=== PATIENT | female | born 1970 | race African-American/Black ===

== ENCOUNTER 2020-10-28 21:00 | Emergency (ER) | payer MEDICARE, MEDICAID ==
[~2020-10-28] VITALS: Ht 162.6 cm; Wt 54.0 kg
[2020-10-28] MEDS ORDERED: IV NORMAL SALINE 1000ML BAG 1,000 ML IV SCH ×2 (21:15→22:15)
[2020-10-28] MEDS ORDERED: IV RINGERS,LACTATED 1000ML 1,000 ML IV SCH (21:15)
--- NOTE | 2020-10-28 21:26 | PHYS DOC ---
General Adult EDM: Chief Complaint: NEURO SYMPTOMS/DEFICITS HPI: HPI: Patient is a 50 year old female past medical history of hypertension diabetes end-stage renal disease (dialysis M/W/F) presents for evaluation due to altered mental status. Prior to arrival patient was at dialysis and suddenly had altered mental status and would not follow commands. EMS was called and patient was transported to [facility] as a code stroke. On arrival patient Alert but confused--- she had no focal deficits on exam. She has no complaints. Patients blood pressure noted to be greater then 200 systolic. Patients heart rate > 100. Daughter states patient did not complete dialysis on Wednesday--- During dialysis patient complained of chest pain and then was transported to [facility]. Daughter is unsure if patient completed dialysis today. Review of Systems: Review of Systems: limited due to altered mental status Heart Score: C/O Chest Pain: N/A Risk Factors: Risk Factors: DM, Current or recent (<one month) smoker, HTN, HLP, family history of CAD, obesity. Risk Scores: Score 0 - 3: 2.5% MACE over next 6 weeks - Discharge Home Score 4 - 6: 20.3% MACE over next 6 weeks - Admit for Clinical Observation Score 7 - 10: 72.7% MACE over next 6 weeks - Early Invasive Strategies Current Medications: Current Medications Medications (Trade) Dose Ordered Sig/Dave Start Time Stop Time Status Last Admin Dose Admin Ringer's Solution 1,000 ml @ 1,000 mls/hr Q1H 10/28/20 21:15 10/28/20 22:14 UNV Sodium Chloride 1,000 ml @ 100 mls/hr Q10H 10/28/20 21:15 UNV Physical Exam: PE: General: alert, and confused Skin: warm, dry and intact. Head:: Normocephalic, atraumatic. Neck: Trachea midline. Eyes: EOMI, Normal conjunctiva, No drainage CARDIOVASCULAR: tachycardic RESPIRATORY: No respiratory distress Back: Full range of motion. MUSCULOSKELETAL: Full range of motion of bilateral upper and lower extremities. GASTROINTESTINAL: Abdomen soft without rebound or guarding. NEUROLOGICAL: Alert but confused. No neurological deficits observed, Psychiatric: Cooperative. Current Patient Data: Labs: Laboratory Tests Test 10/28/20 21:16 Glucose (Fingerstick) 199 mg/dL (70-99) H EKG: EKG: [] EKG performed at 2109 heart rate [address] elevation no ST depression no acute NC Radiology/Procedures: Radiology/Procedures: [] Impression: IMPRESSION: Mild patchy airspace disease in the right lung base, possibly subsegmental atelectasis. Electronically signed by: [place] Crabtree DO (10/28/2020 10:06 PM) [facility] FINDINGS: No focal parenchymal lesion or hemorrhage is identified. There is no midline shift or sulcal effacement. Mild patchy hypodensity in the periventricular white matter. No acute vascular territory infarction is identified. Magana-white distinction is preserved. The ventricular system is within normal limits without compression hydrocephalus. The basal cisterns are well maintained. The visualized portions of the paranasal sinuses and mastoid air cells are well- pneumatized. No acute fractures. IMPRESSION: Mild small vessel ischemic change, technically age indeterminate without recent prior imaging. No acute hemorrhage. Course & Med Decision Making: Course & Med Decision Making Pertinent Labs and Imaging studies reviewed. (See chart for details) [] Patient was evaluated for chief complaint. Work-up consisted of laboratory analysis radiologic imaging and EKG. Results reviewed and discussed with patient and daughter. CT imaging of the head no acute abnormality chest x-ray no focal infiltrate probable atelectasis. Patient noted to have a potassium of 3.0 and was treated with 40 p.o. effervescent. Patient's creatinine noted to be elevated at 2.4 with a history of dialysis. Patient's troponin 0 0.07 no previous to compare to suspect related to chronic kidney disease. EKG without acute ischemic changes. Patient's blood pressure greater than 200 systolic on arrival. Patient was treated with labetalol 20 mg IV push. Patient blood pressure improved to 170 systolic. During patient's work-up and awaiting for labs patient's mental status improved. Patient is alert, and was her daughter who was present as well his birthday and the name of her children. She states she is at a hospital believe she is at . She continues to have no focal neurological deficits she denies any pain. Despite patient's mental status improvement daughter states patient is not back to baseline. Family is requesting patient to be transferred to [facility]. Patient is currently stable for transfer. Discussed patient with [facility] transfer team and patient was accepted by Dr. Timan. Hyatt Disclaimer: Edmar Disclaimer: This electronic medical record was generated, in whole or in part, using a voice recognition dictation system. NIHSS Stroke Scale NIH Stroke Scale: NIH Stroke Scale Response (Comments) Value Level of Consciousness: 0 Alert/Responsive 0 LOC Questions: 1 Answers one correctly 1 LOC Commands: 0 Performs both tasks 0 Best Gaze: 0 Normal 0 Visual: 0 No visual loss 0 Facial Palsy: 0 Normal, symmetrical 0 Motor - Left Arm 0 No drift 0 Motor - Right Arm 0 No drift 0 Motor - Left Leg 0 No drift 0 Motor: Right Leg 0 No drift 0 Limb Ataxia: 0 Absent 0 Best Language: 0 Normal 0 Dysathria: 0 Normal 0 Extinction and Inattention: 0 Normal 0 Total 1 Departure Departure Impression: Primary Impression: Hypertension Additional Impressions: ESRD (end stage renal disease) Altered mental state Disposition: 02 SHORT TERM HOSPITAL Condition: STABLE Referrals: DAVID ANTOINE (PCP) NATALYA ISRAEL DO October 28, 2020 21:26
--- NOTE | 2020-10-28 21:27 | RAD ---
Exam: CT head INDICATION: Altered mental status TECHNIQUE: Sequential axial images through the head were obtained without the administration of IV co ntrast. Exposure: One or more of the following in the visualized dose reduction techniques were utilized for this examination: 1. Automated exposure control 2. Adjustment of the MA and/or KV according to patient size 3. Use of iterative of reconstructive technique Comparisons: None FINDINGS: No focal parenchymal lesion or hemorrhage is identified. There is no midline shift or sulcal effaceme nt. Mild patchy hypodensity in the periventricular white matter. No acute vascular territory infarction i s identified. Magana-white distinction is preserved. The ventricular system is within normal limits without compression hydrocephalus. The basal cisterns are well maintained. The visualized portions of the paranasal sinuses and mastoid air cells are well-pneumatized. No acute fractures. IMPRESSION: Mild small vessel ischemic change, technically age indeterminate without recent prior imaging. No acu te hemorrhage. FOR INTERNAL CODING PURPOSES Critical result: Findings discussed with Radha at 10/28/2020 9:23 PM. RESULT CODE: (C) Electronically signed by: Alek Hewitt MD (10/28/2020 9:25 PM) [facility]
[2020-10-28 21:47] LABS: BASO # 0.1 x10^3/uL (0.0-0.2); BASO % 1 % (0-3); EOS # 0.1 x10^3/uL (0.0-0.7); EOS % 2 % (0-3); HEMATOCRIT 31.9 % (36.0-47.0); HEMOGLOBIN 10.7 g/dL (12.0-15.5); LYMPH # 1.7 x10^3/uL (1.0-4.8); LYMPH % 42 % (24-48); MEAN CORPUSCULAR HEMOGLOBIN 28 pg (25-35); MEAN CORPUSCULAR HGB CONC 34 g/dL (31-37); MEAN CORPUSCULAR VOLUME 84 fL (79-100); MONO # 0.3 x10^3/uL (0.0-1.1); MONO % 8 % (0-9); NEUT # 1.9 x10^3/uL (1.8-7.7); NEUT % 47 % (31-73); PLATELET COUNT 176 x10^3/uL (140-400); RED BLOOD COUNT 3.82 x10^6/uL (3.50-5.40); RED CELL DISTRIBUTION WIDTH 14.9 % (11.5-14.5); WHITE BLOOD COUNT 4.1 x10^3/uL (4.0-11.0)
[2020-10-28 21:55] LABS: CALCIUM 8.7 mg/dL (8.5-10.1); CREATININE 2.4 mg/dL (0.6-1.0); GFR 25.8
[2020-10-28 21:58] LABS: PROTHROMBIN TIME PATIENT 14.6 SEC (11.7-14.0)
[2020-10-28] MEDS ORDERED: IV NORMAL SALINE 500ML BAG 500 ML IV ONE (22:00)
[2020-10-28 22:01] LABS: ALBUMIN 3.5 g/dL (3.4-5.0); ALBUMIN/GLOBULIN RATIO 1.1 (1.0-1.7); MAGNESIUM 1.9 mg/dL (1.8-2.4); TOTAL BILIRUBIN 0.5 mg/dL (0.2-1.0); TOTAL PROTEIN 6.8 g/dL (6.4-8.2)
--- NOTE | 2020-10-28 22:08 | RAD ---
EXAMINATION: XR CHEST 1V CLINICAL HISTORY: Altered mental status EXAM DATE/TIME: 10/28/2020 9:21 PM COMPARISON: None FINDINGS: Lines, Tubes, and Devices: None. Cardiomediastinal Silhouette: Normal heart size. Aortic atherosclerotic calcification. Lungs and Pleura: Mild patchy opacities in the right lung base, possibly atelectasis. No evidence of pleural effusion. Pulmonary vasculature unremarkable. Bones and Soft Tissues: Degenerative changes of the thoracic spine. Cholecystectomy clips. IMPRESSION: Mild patchy airspace disease in the right lung base, possibly subsegmental atelectasis. Electronically signed by: Montana Crabtree DO (10/28/2020 10:06 PM) [facility]
[2020-10-28] MEDS ORDERED: LABETALOL 20 MG/4 ML DISP.SYRIN. IVP ONE (22:15)
[2020-10-29] MEDS ORDERED: POTASSIUM BICARB 20 MEQ EFFERVESCENT TABLET. PO ONE
[2020-10-29 02:30] VITALS: BP 162/76
--- NOTE | 2020-10-29 05:01 | EKG ---
[facility] [address] [place] [address] Test Date: 2020-10-28 Test Time: 21:09:10 Pat Name: RAAD RUBIO Department: Room: Gender: F Nurse Obgyn: : 1970 Requested By: CARIN PORTER Order Number: [id number] Reading MD: Measurements Intervals [place] Rate: 106 P: 90 GA: 144 QRS: 72 QRSD: 78 T: 68 QT: 344 QTc: 459 Interpretive Statements SINUS TACHYCARDIA NO SPECIFIC ECG ABNORMALITIES RI6.01 No previous ECG available for comparison
== END 2020-10-29 02:45 | disposition short-term general hospital (02) ==
LOC: ER 21:00
DX: E11.22 Type 2 diabetes mellitus with diabetic chronic kidney disease (principal); I12.0 Hypertensive chronic kidney disease with stage 5 chronic kidney disease or end stage renal disease; N18.6 End stage renal disease; R41.82 Altered mental status, unspecified; Z99.2 Dependence on renal dialysis
CPT/HCPCS: 36415; 70450; 71045; 80053; 82962; 83735; 83880; 84484; 85025; 85610; 85730; 93005; 96374; 99285; J3490; J7040

== ENCOUNTER 2021-01-25 17:58 | Emergency (ER) | payer MEDICARE, MEDICAID ==
[~2021-01-25] VITALS: Ht 160 cm; Wt 61.0 kg
[~2021-01-25 17:58] MED LIST: ACET325T21 PO; AMLO-187 PO; APIX5TAB PO; CARV25TA2 PO; DEXT38GE2 PO; ERYT250C33 PO; FAMO20TA5 PO; FOLI0.8T21 PO; GLUC1KIT IM; GLUC3SPR NS; INSU100C4 SQ; INSU100I27 SQ; INSU100I53 SQ; LIDO1ADH63 TP; LIPA1TAB4 PO; MELA3TAB30 PO; ONDA4TAB7 PO; PANT20TA2 PO; POLY17PO29 PO; SCOP1PAT11 TP; SEVE800T9 PO; SIME80TA14 PO
--- NOTE | 2021-01-25 18:28 | PHYS DOC ---
Past Medical History Past Medical History: Diabetes-Type II, High Cholesterol, Hypertension, Renal Disease, Renal Failure Additional Past Medical Histor: GASTROPROESIS,PE'S,ESRD,PVD Past Surgical History: Cholecystectomy Additional Past Surgical Histo: FISTULA LEFT UPPER ARM Smoking Status: Former Smoker Alcohol Use: None General Adult EDM: Chief Complaint: NAUSEA/VOMITING/DIARRHEA HPI: HPI: Patient is a 50 year old female presents with a chief complaint of upper abdominal pain. Abdominal pain started yesterday and has been constant since onset. Is primarily located in her upper abdominal region. Patient has associated nausea and vomiting. She denies any diarrhea or chest pain. Patient states she has had previous similar symptoms associated with pancreatitis. Review of Systems: Review of Systems: Review of systems: Constitutional symptoms- No fever, no chills. Eyes- No Discharge, No Visual Loss Respiratory symptoms- No shortness of breath, No wheezing, No Dyspnea on Exertion Cardiovascular Systems; No chest pain, No Palpitations, No syncope Gastrointestinal symptoms: Positive abdominal pain, Positive nausea, Positive vomiting denies diarrhea. Genitourinary symptoms: No dysuria. Musculoskeletal symptoms: No back pain No extremity pain. NEUROLOGICAL Symptoms: No headache, no generalized weakness; No focal Weakness Skin: No rash. Heart Score: C/O Chest Pain: N/A Risk Factors: Risk Factors: DM, Current or recent (<one month) smoker, HTN, HLP, family history of CAD, obesity. Risk Scores: Score 0 - 3: 2.5% MACE over next 6 weeks - Discharge Home Score 4 - 6: 20.3% MACE over next 6 weeks - Admit for Clinical Observation Score 7 - 10: 72.7% MACE over next 6 weeks - Early Invasive Strategies Allergies: Allergies: Allergies Coded Allergies Type Severity Reaction Last Updated Verified metoclopramide Allergy Intermediate 01/11/21 Yes Physical Exam: PE: General: alert, no acute distress. Skin: warm, dry and intact, no erythema, no rash. HENT: bilateral external ears normal, oropharynx moist, nose normal. Head:: Normocephalic, atraumatic. Neck: Trachea midline. Eyes: EOMI, Normal conjunctiva, No drainage CARDIOVASCULAR: Regular rate and rhythm RESPIRATORY: No respiratory distress Back: Full range of motion. MUSCULOSKELETAL: Full range of motion of bilateral upper and lower extremities. GASTROINTESTINAL: Diffuse abdominal tenderness, abdomen is soft without rebound or guarding NEUROLOGICAL: Alert and noted to person, place and time. No neurological de ficits observed Psychiatric: Cooperative. Normal judgment Current Patient Data: Vital Signs: Vital Signs Date Time Temp Pulse Resp B/P (MAP) Pulse Ox O2 Delivery O2 Flow Rate FiO2 01/25/21 18:10 98.7 94 16 181/89 95 Room Air 98.7 EKG: EKG: [] Radiology/Procedures: Radiology/Procedures: [] Impression: Exam: CT abdomen and pelvis with contrast INDICATION: Abdominal pain TECHNIQUE: Sequential axial images through the abdomen and pelvis obtained following the administration of 60 mL of Omni 300 IV contrast. Sagittal and coronal reformatted images were reconstructed from the axial data and reviewed. Exposure: One or more of the following in the visualized dose reduction techniques were utilized for this examination: 1. Automated exposure control 2. Adjustment of the MA and/or KV according to patient size 3. Use of iterative of reconstructive technique Comparisons: None FINDINGS: Size is normal. No pericardial visualized lung bases are clear. No pleural effusion. Liver,, and adrenals are unremarkable. Mild fat stranding noted at the pancreas. Gallbladder surgically absent. No perinephric inflammation or hydronephrosis. No renal or ureteral calculi are identified. Bladder is partially distended and not well evaluated. Uterus is not enlarged. No abnormal adnexal mass. Large amount of stool is noted in the colon. Postoperative changes at the ascending colon. Small bowel is unremarkable. No free intra-abdominal air or fluid. No obstruction. Abdominal aorta has a normal course and caliber. Abdominal vasculature is patent. No enlarged intra-abdominal lymph nodes are identified. No suspicious osseous lesions or acute fractures. There is skin thickening at the left lower quadrant anterior abdominal wall. IMPRESSION: 1. Mild stranding surrounding the pancreas may relate to pancreatitis. Correlate with lipase. 2. Mild wall thickening at the bladder which is nonspecific. Correlate with urinalysis for cystitis. 3. There is skin thickening of the anterior abdominal wall at the left lower quadrant. Correlate with physical exam. Course & Med Decision Making: Course & Med Decision Making Pertinent Labs and Imaging studies reviewed. (See chart for details) [] Patient was evaluated for chief complaint. Work-up consisted of laboratory analysis radiologic imaging and EKG. Initial treatment included 1 L normal saline, Zofran 4 mg, morphine 4 mg. Edmar Disclaimer: Edmar Disclaimer: This electronic medical record was generated, in whole or in part, using a voice recognition dictation system. Departure Departure Impression: Primary Impression: Abdominal pain Additional Impression: Nausea & vomiting Referrals: NON,STAFF (PCP) Patient Instructions: Acute Pancreatitis Scripts Hydrocodone/Acetaminophen (Hydrocodone-Acetamin 5-325 mg) 1 Each Tablet 1 EACH PO Q4-6HRS, #20 TAB Prov: NATALYA ISRAEL I DO 01/25/21 Ondansetron Hcl (ZOFRAN) 4 Mg Tablet 1 TAB PO Q6HRS, #20 TAB Prov: NATALYA ISRAEL I DO 01/25/21 Hydrocodone/Acetaminophen (Hydrocodone-Acetamin 5-325 mg) 1 Each Tablet 1 EACH PO Q4-6HRS, #20 TAB Prov: NATALYA ISRAEL DO 01/25/21 NATALYA ISRAEL DO Jan 25, 2021 18:28
[2021-01-25] MEDS ORDERED: IV NORMAL SALINE 1000ML BAG 1,000 ML IV ONE ×2 (18:45→19:45)
[2021-01-25] MEDS ORDERED: MORPHINE SULFATE 4 MG/ML INJ. IVP ONE ×2 (18:45→19:45)
[2021-01-25] MEDS ORDERED: ONDANSETRON PF 4 MG/2 ML VIAL. IVP ONE (18:45)
[2021-01-25 19:04] LABS: BASO % 1 % (0-3); EOS # 0.1 x10^3/uL (0.0-0.7); EOS % 2 % (0-3); HEMATOCRIT 37.1 % (36.0-47.0); HEMOGLOBIN 12.5 g/dL (12.0-15.5); LYMPH # 1.2 x10^3/uL (1.0-4.8); LYMPH % 30 % (24-48); MEAN CORPUSCULAR HEMOGLOBIN 30 pg (25-35); MEAN CORPUSCULAR HGB CONC 34 g/dL (31-37); MEAN CORPUSCULAR VOLUME 90 fL (79-100); MONO # 0.4 x10^3/uL (0.0-1.1); MONO % 11 % (0-9); NEUT # 2.2 x10^3/uL (1.8-7.7); NEUT % 57 % (31-73); PLATELET COUNT 248 x10^3/uL (140-400); RED BLOOD COUNT 4.14 x10^6/uL (3.50-5.40); RED CELL DISTRIBUTION WIDTH 16.3 % (11.5-14.5); WHITE BLOOD COUNT 3.9 x10^3/uL (4.0-11.0)
[2021-01-25 19:16] LABS: CALCIUM 9.7 mg/dL (8.5-10.1); CREATININE 4.7 mg/dL (0.6-1.0); GFR 11.9; POTASSIUM 4.7 mmol/L (3.5-5.1)
[2021-01-25 19:22] LABS: ALBUMIN 3.4 g/dL (3.4-5.0); ALBUMIN/GLOBULIN RATIO 0.8 (1.0-1.7); MAGNESIUM 2.1 mg/dL (1.8-2.4); TOTAL BILIRUBIN 0.3 mg/dL (0.2-1.0); TOTAL PROTEIN 7.5 g/dL (6.4-8.2)
[2021-01-25] MEDS ORDERED: CONTRAST GIVEN. MC PRN (19:30)
[2021-01-25] MEDS ORDERED: IOHEXOL 300 MG/ML 100ML VIAL. IV ONE (19:30)
--- NOTE | 2021-01-25 19:34 | RAD ---
Exam: CT abdomen and pelvis with contrast INDICATION: Abdominal pain TECHNIQUE: Sequential axial images through the abdomen and pelvis obtained following the administrati on of 60 mL of Omni 300 IV contrast. Sagittal and coronal reformatted images were reconstructed from the axial data and reviewed. Exposure: One or more of the following in the visualized dose reduction techniques were utilized for this examination: 1. Automated exposure control 2. Adjustment of the MA and/or KV according to patient size 3. Use of iterative of reconstructive technique Comparisons: None FINDINGS: Size is normal. No pericardial visualized lung bases are clear. No pleural effusion. Liver,, and adrenals are unremarkable. Mild fat stranding noted at the pancreas. Gallbladder surgical ly absent. No perinephric inflammation or hydronephrosis. No renal or ureteral calculi are identified. Bladder is partially distended and not well evaluated. Uterus is not enlarged. No abnormal adnexal ma ss. Large amount of stool is noted in the colon. Postoperative changes at the ascending colon. Small carl l is unremarkable. No free intra-abdominal air or fluid. No obstruction. Abdominal aorta has a normal course and caliber. Abdominal vasculature is patent. No enlarged intra-abdominal lymph nodes are identified. No suspicious osseous lesions or acute fractures. There is skin thickening at the left lower quadrant anterior abdominal wall. IMPRESSION: 1. Mild stranding surrounding the pancreas may relate to pancreatitis. Correlate with lipase. 2. Mild wall thickening at the bladder which is nonspecific. Correlate with urinalysis for cystitis. 3. There is skin thickening of the anterior abdominal wall at the left lower quadrant. Correlate wit h physical exam. Electronically signed by: Alek Hewitt MD (01/25/2021 7:32 PM) [facility]
[2021-01-25] MEDS ORDERED: HYDR-2759 PO ×3 (21:18→21:29)
[2021-01-25] MEDS ORDERED: ONDA4TAB7 PO (21:25)
[2021-01-25] MEDS ORDERED: HYDROcodone/APAP 5/325MG 1 TAB TABLET PO ONE ×2 (22:30→23:00)
[2021-01-25] MEDS ORDERED: ONDANSETRON ODT 4 MG TAB.RAPDIS. PO ONE ×2 (22:30→23:00)
[2021-01-25 22:38] VITALS: BP 154/70
== END 2021-01-25 22:42 | disposition home or self-care (01) ==
LOC: ER 17:58
DX: R10.10 Upper abdominal pain, unspecified (principal); R11.2 Nausea with vomiting, unspecified; E78.00 Pure hypercholesterolemia, unspecified; Z87.891 Personal history of nicotine dependence; E11.22 Type 2 diabetes mellitus with diabetic chronic kidney disease; I12.0 Hypertensive chronic kidney disease with stage 5 chronic kidney disease or end stage renal disease; N18.6 End stage renal disease; Z90.49 Acquired absence of other specified parts of digestive tract; Z88.1 Allergy status to other antibiotic agents
CPT/HCPCS: 36415; 74177; 80053; 83690; 83735; 84484; 85025; 96361; 96374; 96375; 96376; 99285; G0480; J2270; J2405; J7030; Q9967